=== PATIENT | female | born 1955 | race Caucasian/White ===

== ENCOUNTER 2019-04-30 06:38 | Observation (INO) | payer OTHER ==
[2019-04-28 12:32] LABS: BASOPHILS # (AUTO) 0.1 (0.0-0.1); EOSINOPHILS # (AUTO) 0.2 (0.0-0.4); EOSINOPHILS % 2.6 % (0.0-6.0); HEMATOCRIT 40.3 % (34.2-44.1); HEMOGLOBIN 11.9 g/dL (12.0-16.0); LYMPHOCYTES # (AUTO) 2.1 (1.0-3.2); LYMPHOCYTES % 25.3 % (18.0-39.1); MEAN CORPUSCULAR HEMOGLOBIN 23.8 pg (28-32); MEAN CORPUSCULAR HGB CONC 29.5 g/dL (31-35); MEAN CORPUSCULAR VOLUME 80.4 fL (81-99); MONOCYTES # (AUTO) 0.6 (0.2-0.8); MONOCYTES % 6.9 % (4.4-11.3); NEUTROPHILS # (AUTO) 5.4 (2.1-6.9); PLATELET COUNT 229 x10e3/uL (140-360); RED BLOOD COUNT 5.01 x10e6/uL (3.6-5.1); RED CELL DISTRIBUTION WIDTH 15.2 % (11.7-14.4)
[2019-04-28 12:43] LABS: INR 0.9; PARTIAL THROMBOPLASTIN TIME 28.4 seconds (23.8-35.5); PROTHROMBIN TIME 12.6 seconds (11.9-14.5)
[2019-04-28 12:47] LABS: ANION GAP 13.9 mmol/L (8-16); BLOOD UREA NITROGEN 10 mg/dL (7-26); BUN/CREATININE RATIO 13 (6-25); CALCIUM 10.3 mg/dL (8.4-10.2); CARBON DIOXIDE 29 mmol/L (22-29); CHLORIDE 100 mmol/L (98-107); CREATININE, SERUM 0.77 mg/dL (0.57-1.11); EST GLOMERULAR FILTRATION RATE > 60 ML/MIN (60-); GLUCOSE 113 mg/dL (74-118); POTASSIUM 3.9 mmol/L (3.5-5.1); SODIUM 139 mmol/L (136-145)
--- NOTE | 2019-04-29 09:45 | Diagnostic Imaging Report ---
EXAMINATION: CHEST 2 VIEWS INDICATION: Pre-operative COMPARISON: None FINDINGS: LINES/TUBES:None LUNGS:The lungs are well-inflated. No focal consolidation or pulmonary edema. PLEURA:No pleural effusion or pneumothorax. MEDIASTINUM:The cardiomediastinal silhouette appears normal in size and shape. BONES/SOFT TISSUES:No acute osseous injury. ABDOMEN:No free air under the diaphragm. IMPRESSION: No focal pneumonia or pulmonary edema. Signed by: Chata Ambrose MD on 04/28/2019 1:06 PM
[2019-04-30] VITALS (8 sets, daily range): BP systolic 125–159; BP diastolic 76–84
[~2019-04-30] VITALS: Ht 149.9 cm; Wt 76.2 kg
[~2019-04-30 06:38] MED LIST: AMBIEN10 MG PO; AMLODIPINE BESIL1 GM PO; ATORVASTATIN CA20 MG PO; GABAPENTIN100 MG PO; GLIMEPIRIDE2 MG PO; LEVOXYL112 MCG PO; LIDOCAINE OINTMENT TOP; LOSARTAN POTASS25 MG PO; METAXALONE800 MG PO; METFORMIN HCL500 MG PO; MONTELUKAST SOD10 MG PO; NORCO 10-325 T1 EACH PO; PANTOPRAZOLE SO40 MG PO
[2019-04-30] MEDS ORDERED: BACITRACIN 50,000 UNIT VIAL ONE (06:44)
[2019-04-30] MEDS ORDERED: THROMBIN FOR SOLN 5,000 UNIT VIAL ONE (06:44)
[2019-04-30] MEDS ORDERED: BUPIVACAINE 0.5%/EPI 30 ML SDV INJ ONE (06:44)
--- OUTSIDE RECORDS SUMMARY | 2019-04-30 06:55 | XMS REPORT ---
Author Author [facility] Address Unknown Phone Unavailable Care Team Providers [employer] Name Role Phone ОЛЬГА BENSON Unavailable Unavailable Problems This patient has no known problems. Allergies, Adverse Reactions, Alerts This patient has no known allergies or adverse reactions. Medications This patient has no known medications. Results Test Description Test Time Test Comments Text Results Atomic Results Result Comments CHEST 2 VIEWS 2019-04-28 13:05:00 [facility] [address] [place] [address] Patient Name: DENISE FARIAS MR #: [id number] : 1955 Age/Sex: 63/F Req #: [id number] Adm Physician: Ordered by: ОЛЬГА BENSON MD Report #: [id number] Location: OR Room/Bed: Procedure: [id number] DX/CHEST 2 VIEWS Exam Date: 04/28/19 Exam Time: 1240 REPORT STATUS: Signed EXAMINATION: CHEST 2 VIEWS INDICATION: Pre-operative COMPARISON: None FINDINGS: LINES/TUBES:None LUNGS:The lungs are well-inflated. No focal consolidation or pulmonary edema. PLEURA:No pleural effusion or pneumothorax. MEDIASTINUM:The cardiomediastinal silhouette appears normal in size and shape. BONES/SOFT TISSUES:No acute osseous injury. ABDOMEN:No free air under the diaphragm. IMPRESSION: No focal pneumonia or pulmonary edema. Signed by: Mariya Meredith MD on 04/28/2019 1:06 PM Dictated By: MARIYA MEREDITH MD [id number] Transcribed By: JETT SHAY on 04/28/19 1302 COPY TO: ОЛЬГА BENSON MD
[2019-04-30] MEDS ORDERED: ACETAMINOPHEN 1000 MG/100 ML 100 ML IV ONE (07:04)
[2019-04-30] MEDS ORDERED: LIDOCAINE HCL (LTA) 4 ML SOLN ONE (07:04)
[2019-04-30] MEDS ORDERED: IBUPROFEN 800MG/ 250ML 250 ML IV ONE (07:04)
[2019-04-30] MEDS ORDERED: CEFAZOLIN SOD 1 GM/NS 50ML 100 ML IV ONE (07:35)
[2019-04-30] MEDS: LACTATED RINGER'S 1,000 ML IV SCH ×3 (10:21→20:34)
[2019-04-30] MEDS ORDERED: ONDANSETRON HCL INJ 2MG/ML 2ML 2 MG/ML VIAL IV PRN (10:30)
[2019-04-30] MEDS ORDERED: MORPHINE SULFATE 5 MG/ML VIAL IM PRN (10:30)
[2019-04-30] MEDS ORDERED: HYDROCODONE/APAP 10MG-325MG TAB PO PRN (10:30)
[2019-04-30] MEDS ORDERED: MAGNESIUM/ALUMINUM/SIMETHICONE 30 ML UDC PO PRN (10:30)
[2019-04-30] MEDS ORDERED: HYDROMORPHONE 2MG/ML 2 MG/ML ML IV PRN (10:30)
[2019-04-30] MEDS ORDERED: CEPACOL SORE THROAT LOZENGES PO PRN (10:30)
[2019-04-30] MEDS ORDERED: ACETAMINOPHEN 325 MG TAB PO PRN (10:30)
[2019-04-30] MEDS ORDERED: PROMETHAZINE HCL (IM) 25 MG/ML VIAL IM PRN (10:30)
[2019-04-30] MEDS ORDERED: ZOLPIDEM TARTRATE 5 MG TAB PO PRN (10:30)
[2019-04-30] MEDS ORDERED: MORPHINE SULFATE INJ 4 MG/ML INJ 1ML ONE ×2 (10:51→11:04)
--- NOTE | 2019-04-30 11:06 | Operative Report ---
DATE OF PROCEDURE: 04/30/2019 SURGEON: Camron Field MD PREOPERATIVE DIAGNOSES: C3-C4 and C4-C5 spondylosis and severe spinal stenosis with myelopathy, M50.01. POSTOPERATIVE DIAGNOSES: C3-C4 and C4-C5 spondylosis and severe spinal stenosis with myelopathy, M50.01. PROCEDURES: 1. C3-C4 anterior cervical diskectomy and microsurgical osteophyte resection and allograft fusion, 77797. 2. C4-C5 anterior cervical diskectomy and microsurgical osteophyte resection and allograft fusion, 04376. 3. Preparation of tricortical iliac crest allograft, 80675. 4. C3-C4 and C4-C5 anterior cervical plating with Synthes CSLP plate, 68875. ANESTHESIA: General. INDICATIONS: The patient is a woman, who presents with C3-C4 and C4-C5 spondylosis and severe spinal stenosis, and was taken to the operating room for two-level anterior cervical decompression and fusion. PROCEDURE IN DETAIL: After induction of general anesthesia, the patient was placed on the operating table in supine position. The right side of the neck was prepped and draped in sterile fashion. The fluoroscopic C-arm was positioned in cross-table lateral orientation. A transverse incision was created over the right side of neck superior superimposed on the C4 vertebral body as determined by fluoroscopy. The platysma was divided in line with the incision. A subplatysmal dissection was carried out and avascular plane of the dissection was developed medially. Sternocleidomastoid muscle was followed medial to the carotid sheath to the anterior border of the cervical spine. The deep cervical fascia was opened. The esophagus was retracted to the left. The attachments of longus colli muscles to the anterolateral aspects of vertebral bodies of C3, C4, and C5 were divided. The anterior longitudinal ligament was resected. Davilla posts were inserted into C3 and C5. The Davilla distractor was used to distract both disk spaces simultaneously. The anterior annuli of disks were incised with a #11 blade. The contents of both discs were thoroughly evacuated with curettes and pituitary rongeurs. The posterior osteophytes were meticulously drilled with a 2 mm cutting bur on a high-speed drill until they were completely removed. The posterior annulus of the disk, herniated disk material, and the posterior longitudinal ligament were resected layer by layer until the dura was fully exposed and decompressed. The medial aspects of the uncinate processes were resected bilaterally to further expose any compressed origins of the corresponding nerve roots. After satisfactory decompression had been achieved, the endplates were prepared for fusion. Two pieces of tricortical iliac crest allograft were cut to size and shapes of the disk spaces and were inserted into disk spaces under distraction and fluoroscopic guidance. The distraction was released and distraction posts were removed. A Synthes CSLP small stature anterior cervical plate was selected and affixed to vertebral bodies of C3, C4, and C5 with three pairs of 14 x 4.35 mm screws. All screw holes were drilled and tapped on the lateral fluoroscopic guidance. All screws were locked with the appropriate locking screws and excellent construct was obtained. The wound was copiously irrigated with bacitracin solution. Meticulous hemostasis was secured. A small Hemovac drain was placed over the plate and brought out through a separate stab incision. The platysma was closed with 3-0 Vicryl sutures. The skin was closed with 4-0 Monocryl sutures in subcuticular fashion. Steri-Strips and dressing were applied. The patient was awakened, extubated, and taken to postanesthesia care unit in stable condition. No intraoperative complications were encountered. Estimated blood loss was 30 mL. Camron Field MD PP/BARBARA /[id number]
--- NOTE | 2019-04-30 11:48 | NUR ---
Received patient from PACU. Respiration even and unlabored without SOB. Anterior neck surgical site dressing clean, dry and intact, no bleeding noted. O2 at 2L via NC with 02 sat @ 100%. Palpable bilateral dorsalis pedis pulses. Hard- C- Collar on neck in placed. Call light in reach.
[2019-04-30] MEDS: CARISOPRODOL 350 MG TAB PO PRN ×2 (14:58→21:06)
[2019-04-30] MEDS ORDERED: LIDOCAINE HCL 2% JELLY 5 ML TUBE ONE (18:16)
[2019-04-30] MEDS ORDERED: PROPOFOL IV EMULSION 10 MG/ML 20 ML VIAL ONE (18:16)
[2019-04-30] MEDS ORDERED: NEOSTIGMINE 5 MG/5ML SYR ONE (18:16)
[2019-04-30] MEDS ORDERED: DEXAMETHASONE SOD PHOS INJ 4 MG/ML VIAL ONE (18:16)
[2019-04-30] MEDS ORDERED: SEVOFLURANE INHAL SOLN 250 ML PEN BTL ONE (18:16)
[2019-04-30] MEDS ORDERED: ONDANSETRON HCL INJ 2MG/ML 2ML 2 MG/ML VIAL ONE (18:16)
[2019-04-30] MEDS ORDERED: LIDOCAINE HCL 2% LOCAL INJ 5 ML SDV VIAL INJ ONE (18:16)
[2019-04-30] MEDS ORDERED: GLYCOPYRROLATE INJ 1MG/ 5 ML SYR ONE (18:16)
[2019-04-30] MEDS ORDERED: FENTANYL CITRATE/PF 100MCG/2 ML INJ ONE (18:43)
[2019-04-30] MEDS ORDERED: MIDAZOLAM HCL 2 MG/2 ML VIAL ONE (18:43)
[2019-04-30] MEDS: GLIMEPIRIDE 2 MG TAB PO SCH (18:44)
[2019-04-30] MEDS: METFORMIN HCL 500 MG TAB PO SCH (18:44)
[2019-04-30] MEDS: CEFAZOLIN SOD 1 GM/NS 50ML 50 ML IV SCH ×2 (18:44→23:18)
[2019-04-30] MEDS: METAXALONE 800 MG TAB PO SCH (18:45)
--- NOTE | 2019-04-30 18:50 | NUR ---
Emptied 30 ml of blood on hemovac.
--- NOTE | 2019-04-30 19:12 | NUR ---
Report given to night stocker. Respiration even and unlabored without SOB. Call light in reach.
[2019-04-30] MEDS ORDERED: ZOLPIDEM TARTRATE 10 MG TAB PO SCH (21:00)
[2019-04-30] MEDS ORDERED: MONTELUKAST SODIUM 10 MG TAB PO SCH (21:00)
[2019-04-30] MEDS ORDERED: GABAPENTIN 100 MG CAP PO SCH (21:00)
[2019-04-30] MEDS ORDERED: GABAPENTIN 300 MG CAP PO SCH (21:00)
[2019-04-30] MEDS ORDERED: ATORVASTATIN 40 MG TAB PO SCH (21:00)
[2019-04-30] MEDS ORDERED: ATORVASTATIN 20 MG TAB PO SCH (21:00)
[2019-04-30] MEDS: OXYCODONE/ACETAMINOPHEN 5-325 1 EACH TABLET PO PRN (21:06)
[2019-05-01] MEDS: OXYCODONE/ACETAMINOPHEN 5-325 1 EACH TABLET PO PRN ×2 (02:32→09:58)
[2019-05-01] MEDS: CARISOPRODOL 350 MG TAB PO PRN ×2 (02:33→09:58)
[2019-05-01 04:35] VITALS: BP 124/74
[2019-05-01] MEDS ORDERED: LEVOTHYROXINE SODIUM 112 MCG TAB PO SCH (06:00)
[2019-05-01] MEDS ORDERED: PANTOPRAZOLE SOD 40 MG TABEC PO SCH (07:30)
[2019-05-01 07:55] VITALS: BP 123/71
--- NOTE | 2019-05-01 08:48 | Diagnostic Imaging Report ---
EXAMINATION: C-SPINE 2 VIEWS AP LATERAL INDICATION: Postoperative COMPARISON: None FINDINGS: AP and lateral radiographs of the cervical spine demonstrate postoperative findings of anterior cervical discectomy and fusion at C3-C5. Alignment appears anatomic. Moderate multilevel cervical spine degenerative changes with disc space narrowing and small osteophyte formation. Mild postoperative prevertebral soft tissue thickening. Surgical drain in place. IMPRESSION: Anatomic alignment status post anterior cervical discectomy and fusion at C3-5. Signed by: Chata Ambrose MD on 05/01/2019 8:45 AM
[2019-05-01] MEDS ORDERED: LOSARTAN POTASSIUM 25 MG TAB PO SCH (09:00)
[2019-05-01] MEDS ORDERED: AMLODIPINE BESYLATE 5 MG TAB PO SCH (09:00)
[2019-05-01] MEDS ORDERED: AMLODIPINE BESYLATE 5 MG PO SCH (09:00)
[2019-05-01] MEDS: CEFAZOLIN SOD 1 GM/NS 50ML 50 ML IV SCH (09:18)
[2019-05-01] MEDS: METFORMIN HCL 500 MG TAB PO SCH (09:19)
[2019-05-01] MEDS: GLIMEPIRIDE 2 MG TAB PO SCH (09:19)
[2019-05-01] MEDS: METAXALONE 800 MG TAB PO SCH (09:20)
[2019-05-01 09:27] VITALS: BP 123/71
[2019-05-01] MEDS: LACTATED RINGER'S 1,000 ML IV SCH (11:21)
[2019-05-01] MEDS ORDERED: ONDANSETRON HCL 4 MG ORAL DISINTEGRATING TAB PO PRN (11:30)
[2019-05-01 11:43] VITALS: BP 133/68
[2019-05-01] MEDS ORDERED: NORCO 7.5-3251 EACH PO (12:27)
== END 2019-05-01 12:44 | disposition home or self-care (01) ==
LOC: OR 06:38 → PACU V 10:24 → IMCU 11:48
PROVIDERS: ADMIT Neurological Surgery; ATTEND Neurological Surgery
DX: M50.01 Cervical disc disorder with myelopathy, high cervical region (principal); I10 Essential (primary) hypertension; M19.90 Unspecified osteoarthritis, unspecified site; E03.9 Hypothyroidism, unspecified; K21.9 Gastro-esophageal reflux disease without esophagitis
CPT/HCPCS: 20931; 22551; 22552; 22845; 36415 ×2; 71046; 72040; 77003; 80048; 82948; 85025; 85610; 85730; 86850; 86900; 88304; 93005; C1768; G0378 ×2; J0131; J0690 ×2; J1100; J1170; J2001 ×2; J2250; J2270; J2405; J2704; J3010; J3490; J7121; S0164